=== PATIENT | male | born 1975 | race Caucasian/White ===

== ENCOUNTER 2016-11-22 10:56 | Emergency (ER) | payer BC ==
--- NOTE | 2016-11-22 11:41 | ED ---
General Adult HPI - General Chief complaint: ENT Stated complaint: headache Time Seen by Provider: 11/22/16 11:21 Source: patient, RN notes reviewed Mode of arrival: ambulatory Limitations: no limitations - History of Present Illness Initial comments: 41-year-old male presenting for headache. Patient states that he has had a sinus infection for the past week. He was treated by an urgent care this past Friday which prescribed a Z-Juancho which not seem to improve his symptoms. He denies any fevers or chill. However he states that he feels more pressure in his right frontal sinus. Does have some radiation of pain to the back of his head at times. He denies any sore throat or voice changes. He denies any significant medical history. - Related Data Home Medications Medication Instructions Recorded Confirmed Azithromycin [Zithromax Z-pack] See Taper PO DIRECTED 11/22/16 11/22/16 Ibuprofen [Motrin] 600 mg PO Q8HR PRN 11/22/16 11/22/16 Previous Rx's Medication Instructions Recorded Dexamethasone 6 mg PO DAILY #2 tablet 11/22/16 HYDROcodone/APAP 5-325MG [[place] 1 tab PO Q6HR PRN #8 tab 11/22/16 5-325] Ibuprofen [Motrin] 800 mg PO Q8HR PRN #21 tab 11/22/16 Allergies Allergy/AdvReac Type Severity Reaction Status Date / Time No Known Allergies Allergy Verified 11/22/16 12:28 Review of Systems ROS Statement: Those systems with pertinent positive or pertinent negative responses have been documented in the HPI. ROS Other: All systems not noted in ROS Statement are negative. Past Medical History Additional Past Medical History / Comment(s): migraines History of Any Multi-Drug Resistant Organisms: None Reported Past Surgical History: Orthopedic Surgery Past Psychological History: No Psychological Hx Reported Smoking Status: Current every day smoker Past Alcohol Use History: Occasional Past Drug Use History: None Reported General Exam - General Exam Comments Initial Comments: General: Awake and Alert. No acute distress. Does not appear acutely ill. Appears uncomfortable. Eyes: MONIQUE, EOM intact without pain. No proptosis. No nystagmus. No scleral icterus. HENT: Atraumatic, normocephalic. Mucous membranes moist. Trachea midline. There is some mucosal edema bilateral nares. He is tender over the right frontal sinus. No posterior pharyngeal swelling or erythema. No tonsillar swelling. No mastoid tenderness. No septal hematoma. Neck: The neck is supple, there is no tenderness or JVD. No nuchal rigidity. Cardiovascular: Regular rate and rhythm. No murmur, rub, or gallop is appreciated. Distal pulses intact. Respiratory: Lungs are clear to auscultation bilaterally. No wheezes, rales, rhonchi. No respiratory distress. Gastrointestinal: Soft, Nontender. No rebound or guarding. Non-distended. No masses or organomegaly noted. No CVA tenderness. Musculoskeletal: No tenderness. Normal ROM. No gross deformity. No strength deficits. Neurological: A&Ox3. CN II-XII grossly intact, There are no obvious motor or sensory deficits. Coordination appears grossly intact. Speech is normal. Skin: Skin is warm and dry and no rashes or lesions are noted. Psychiatric: Cooperative, appropriate mood & affect, normal judgment. Limitations: no limitations Course Vital Signs 11/22/16 11/22/16 11:13 13:15 Temperature 97.9 F 96.8 F L Pulse Rate 64 63 Respiratory 18 16 Rate Blood Pressure 143/79 123/73 O2 Sat by Pulse 99 97 Oximetry Medical Decision Making - Medical Decision Making 41-year-old male presenting for headache. Given his history and presenting symptoms this is likely sinus related headache. He was give a dose of Toradol and Decadron in the ED. On reevaluation he does state he is feeling improved after medications. Discussed inflammation as cause of sinus pressure and over- the-counter treatments such as saline nasal rinses versus [place]. Discussed trialing burst of steroids. Discussed NSAIDs for pain and inflammation. Discussed concerning signs symptoms for immediate return to the ED. Discussed close follow-up with PCP. Patient is agreeable with plan of discharge home. Disposition Clinical Impression: Headache, Sinus infection Disposition: HOME SELF-CARE Condition: Stable Instructions: Sinusitis (ED), Acute Headache (ED) Prescriptions: Dexamethasone 6 mg PO DAILY #2 tablet HYDROcodone/APAP 5-325MG [[place] 5-325] 1 tab PO Q6HR PRN #8 tab PRN Reason: Pain Ibuprofen [Motrin] 800 mg PO Q8HR PRN #21 tab PRN Reason: Pain Referrals: Marco Robles MD [Primary Care Provider] - 1-2 days Time of Disposition: 12:55
[2016-11-22] MEDS: KETOROLAC 60 MG/2 ML VIAL IM STA (11:50)
[2016-11-22] MEDS: DEXAMETHASONE SOD PHOSPHATE 10 MG/ML 1 ML VIAL IM STA (11:53)
[2016-11-22 13:16] VITALS: BP 123/73; PULSE 63; RESP 16; TEMP 96.8
== END 2016-11-22 13:17 | disposition home or self-care (01) ==
LOC: EC 10:56
DX: J32.9 Chronic sinusitis, unspecified (principal); F17.200 Nicotine dependence, unspecified, uncomplicated
CPT/HCPCS: 96372 ×2; 99283; J1100; J1885

== ENCOUNTER → 2016-12-21 | Outpatient (CLI) | payer BC ==
--- NOTE | 2016-12-21 09:16 | CT ---
EXAMINATION TYPE: CT sinus wo con DATE OF EXAM: 12/21/2016 9:04 AM COMPARISON: NONE HISTORY: 41-year-old male Sinusitis, headache. CT DLP: 622.3 mGycm Automated exposure control for dose reduction was used. TECHNIQUE: Noncontrast axial views of the paranasal sinuses were obtained. Coronal reconstructions pe rformed. FINDINGS: There is scattered trace mucosal thickening within the maxillary sinuses and anterior ethmoid air kg ls. The frontal and sphenoid sinuses are clear. There is no air-fluid level. Reactive roger- osteogenesis is not seen. There is no destruction of the osseous stafford of the paranasal sinuses. The osteomeatal complexes are patent. Nasal septum shows very slight leftward deviation. The imaged brain brain is normal in appearance. Questionable old left medial orbital wall fracture, a xial images 30 and 31. Globes are intact. Mastoid air cells and middle ear cavities are well pneumatized. Reformatted images confirm above findings. IMPRESSION: Scattered trace mucosal thickening within the maxillary sinuses and anterior ethmoid air cells. Othe rwise, no significant paranasal sinus disease. Slight leftward nasal septal deviation.
== END ==
LOC: RADCTMAIN 08:50
PROVIDERS: ATTEND Family Medicine
DX: J32.0 Chronic maxillary sinusitis (principal); J34.2 Deviated nasal septum
CPT/HCPCS: 70486

== ENCOUNTER 2018-12-29 23:37 | Emergency (ER) | payer BC ==
[2018-12-29 23:52] VITALS: TEMP 98.3
[2018-12-30] MEDS ORDERED: SODIUM CHLORIDE 0.9% 1,000 ML IV ONE (00:02)
[2018-12-30] MEDS ORDERED: diphenhydrAMINE 50 MG/ML 1 ML VIAL IVP STA (00:02)
[2018-12-30] MEDS ORDERED: METOCLOPRAMIDE 5 MG/ML 2 ML VIAL IVP STA (00:02)
[2018-12-30] MEDS ORDERED: KETOROLAC 30 MG/ML 1 ML VIAL IVP STA (00:02)
[2018-12-30] MEDS ORDERED: HYDROmorphone 0.5 MG/0.5 ML SYRINGE IVP STA (01:40)
--- NOTE | 2018-12-30 01:41 | ED ---
Headache HPI - General Chief Complaint: Headache Stated Complaint: Migraine Time Seen by Provider: 12/29/18 23:55 Mode of arrival: ambulatory Limitations: no limitations - History of Present Illness Initial Comments: 43-year-old male patient presents to the emergency department today for evaluation of right-sided headache. Patient states headache started around 8:30 this evening. States he has been sick with nasal congestion and sinus infection for the last couple of weeks. States he did say initially start taking amoxicillin and then was switched to Levaquin on . Patient states that he did have a similar type headache 2 years ago when he had a sinus infection. He denies any fevers or chills with this. Denies any blurred or double vision. Denies dizziness or weakness. States he did have one episode of vomiting today with the pain. Denies any numbness or tingling to his extremities. Denies any focal weakness. Patient denies any recent rash, shortness breath, chest pain, abdominal pain, nausea, vomiting, diarrhea, constipation, back pain, hematuria, dysuria, urinary urgency, urinary frequency, or any other complaints. - Related Data Home Medications Medication Instructions Recorded Confirmed Azithromycin [Zithromax Z-pack] See Taper PO DIRECTED 11/22/16 11/22/16 Ibuprofen [Motrin] 600 mg PO Q8HR PRN 11/22/16 11/22/16 Previous Rx's Medication Instructions Recorded Dexamethasone 6 mg PO DAILY #2 tablet 11/22/16 HYDROcodone/APAP 5-325MG [[place] 1 tab PO Q6HR PRN #8 tab 11/22/16 5-325] Ibuprofen [Motrin] 800 mg PO Q8HR PRN #21 tab 11/22/16 Allergies Allergy/AdvReac Type Severity Reaction Status Date / Time No Known Allergies Allergy Verified 12/29/18 23:52 Review of Systems ROS Statement: Those systems with pertinent positive or pertinent negative responses have been documented in the HPI. ROS Other: All systems not noted in ROS Statement are negative. Past Medical History Additional Past Medical History / Comment(s): migraines, History of Any Multi-Drug Resistant Organisms: None Reported Past Surgical History: Orthopedic Surgery Past Psychological History: No Psychological Hx Reported Smoking Status: Current every day smoker Past Alcohol Use History: Occasional Past Drug Use History: None Reported General Exam Limitations: no limitations General appearance: alert, in no apparent distress, other (Some well-developed, well-nourished adult male patient in no acute distress. Vital signs upon presentation are temperature 98.3F, pulse 64, respirations 17, blood pressure 128/80, pulse ox 97% on room air.) Eye exam: Present: normal appearance, PERRL, EOMI. Absent: scleral icterus, conjunctival injection, nystagmus, periorbital swelling ENT exam: Present: normal exam, normal oropharynx, mucous membranes moist, TM's normal bilaterally Neck exam: Present: normal inspection, full ROM. Absent: tenderness, meningismus, lymphadenopathy Respiratory exam: Present: normal lung sounds bilaterally. Absent: respiratory distress, wheezes, rales, rhonchi, stridor Cardiovascular Exam: Present: regular rate, normal rhythm, normal heart sounds. Absent: systolic murmur, diastolic murmur, rubs, gallop, clicks GI/Abdominal exam: Present: soft, normal bowel sounds. Absent: distended, tenderness, guarding, rebound, rigid Neurological exam: Present: alert, oriented X3, CN II-XII intact, other (Strength in all 4 extremities is 5/5) Psychiatric exam: Present: normal affect, normal mood Skin exam: Present: warm, dry, intact, normal color. Absent: rash Course Vital Signs 12/29/18 12/30/18 23:48 01:48 Temperature 98.3 F Pulse Rate 64 81 Respiratory 17 16 Rate Blood Pressure 128/80 114/59 O2 Sat by Pulse 97 Oximetry Medical Decision Making - Medical Decision Making 43-year-old male patient presented to the emergency department today for evaluation of right-sided headache with one episode of vomiting. Patient is currently being treated for sinus infection states he did have a similar type headache with a sinus infection 2 years ago. Physical examination is unremarkable. Patient is neurologically intact with no focal deficits. Patient is given IV fluids and medications to treat his headache here in the ER. Upon reevaluation patient's pain decreased from a 10 to a 4. We did discuss receiving one more dose of pain medication and being discharged. Patient does for comfort with this plan. He'll be discharged home to follow-up with his primary care physician for recheck as soon as possible. Return parameters were discussed in detail. He verbalizes understanding and agrees with this plan. Disposition Clinical Impression: Acute headache Disposition: HOME SELF-CARE Condition: Good Instructions (If sedation given, give patient instructions): Acute Headache (ED) Additional Instructions: Increase fluids. Continue home medications. Follow up with your primary care physician for recheck in 1-2 days. Return to the emergency department immediately for any new, worsening, or concerning symptoms. Is patient prescribed a controlled substance at d/c from ED?: No Referrals: Marco Robles MD [Primary Care Provider] - 1-2 days Time of Disposition: 01:41
[2018-12-30 01:49] VITALS: BP 114/59; PULSE 81; RESP 16
== END 2018-12-30 02:13 | disposition home or self-care (01) ==
LOC: EC 23:37
DX: G43.909 Migraine, unspecified, not intractable, without status migrainosus (principal); R09.81 Nasal congestion; F17.200 Nicotine dependence, unspecified, uncomplicated
CPT/HCPCS: 96361; 96374; 96375; 99283

== ENCOUNTER → 2019-01-08 | Outpatient (CLI) | payer BC ==
--- NOTE | 2019-01-08 13:39 | CT ---
EXAMINATION TYPE: CT brain wo con DATE OF EXAM: 01/08/2019 COMPARISON: 10/04/2014 HISTORY: Headache CT DLP: 1213 mGycm. Automated Exposure Control for Dose Reduction was Utilized. TECHNIQUE: CT scan of the head is performed without contrast. FINDINGS: There is no acute intracranial hemorrhage, mass effect, or midline shift identified. The ventricles and sulci are within normal limits in size. The globes are intact and the visualized sin uses are clear. IMPRESSION: No acute intracranial hemorrhage, mass effect, or midline shift is seen. If symptoms per sist would recommend MRI.
== END ==
LOC: RADCTMAIN 13:06
PROVIDERS: ATTEND Family Medicine
DX: R51 Headache (principal)
CPT/HCPCS: 70450

== ENCOUNTER 2019-01-09 20:33 | Emergency (ER) | payer BC ==
[2019-01-09] MEDS ORDERED: diphenhydrAMINE 50 MG/ML 1 ML VIAL IVP STA (21:10)
[2019-01-09] MEDS ORDERED: KETOROLAC 30 MG/ML 1 ML VIAL IVP STA (21:10)
[2019-01-09] MEDS ORDERED: SODIUM CHLORIDE 0.9% 1,000 ML IV STA (21:10)
[2019-01-09] MEDS ORDERED: METOCLOPRAMIDE 5 MG/ML 2 ML VIAL IVP STA (21:10)
--- NOTE | 2019-01-09 21:16 | ED ---
Headache HPI - General Chief Complaint: Headache Stated Complaint: Headache Time Seen by Provider: 01/09/19 20:56 Mode of arrival: ambulatory Limitations: no limitations - History of Present Illness Initial Comments: Patient is a 43-year-old male presenting for headache. The patient is bedside and states that for the last 2-3 years, he typically gets his cyclical headaches between November and December. This headache feels fairly typical and started around 6 PM. It feels a sharp sensation on the right side of his head behind his eye but he denies any vision changes or actual eye pain. He states that he has had this intermittent headache which last couple hours or last 2-3 days. He had a CT of his head performed as he was initially diagnosed with sinus infection. He states that when these headaches come on, he gets a runny nose and feels like needs to blow his nose. He denies any fevers or chills, neck pain, back pain but his had a little bit of nausea. He also states that this is not the worst headache of his life. - Related Data Home Medications Medication Instructions Recorded Confirmed Azithromycin [Zithromax Z-pack] See Taper PO DIRECTED 11/22/16 11/22/16 Ibuprofen [Motrin] 600 mg PO Q8HR PRN 11/22/16 11/22/16 Previous Rx's Medication Instructions Recorded Dexamethasone 6 mg PO DAILY #2 tablet 11/22/16 HYDROcodone/APAP 5-325MG [[place] 1 tab PO Q6HR PRN #8 tab 11/22/16 5-325] Ibuprofen [Motrin] 800 mg PO Q8HR PRN #21 tab 11/22/16 Allergies Allergy/AdvReac Type Severity Reaction Status Date / Time No Known Allergies Allergy Verified 01/09/19 20:46 Review of Systems ROS Statement: Those systems with pertinent positive or pertinent negative responses have been documented in the HPI. Constitutional: Negative for chills, fatigue and fever. HENT: Negative for congestion. Respiratory: Negative for chest tightness, shortness of breath and wheezing. Negative for cough Cardiovascular: Negative for chest pain and palpitations. Gastrointestinal: Negative for abdominal pain. Negative for abdominal distention, diarrhea, nausea and vomiting. Genitourinary: Negative for dysuria. Musculoskeletal: Negative for back pain, neck pain and neck stiffness. Skin: Negative for color change. Neurological: Negative for dizziness, speech difficulty, weakness and light- headedness. Positive for headaches Psychiatric/Behavioral: Negative for agitation and confusion. Negative for anxiety ROS Other: All systems not noted in ROS Statement are negative. Past Medical History Additional Past Medical History / Comment(s): migraines, History of Any Multi-Drug Resistant Organisms: None Reported Past Surgical History: Orthopedic Surgery Past Psychological History: No Psychological Hx Reported Smoking Status: Current every day smoker Past Alcohol Use History: Occasional Past Drug Use History: None Reported General Exam - General Exam Comments Initial Comments: Constitutional: Pt appears well-developed and well-nourished. No distress. Head: Normocephalic and atraumatic. Eyes: EOM are normal. Neck: Normal range of motion. Neck supple. Cardiovascular: Normal rate, regular rhythm, S1 normal, S2 normal and normal heart sounds. Exam reveals no gallop and no friction rub. No murmur heard. Pulmonary/Chest: Effort normal and breath sounds normal. No tachypnea and no bradypnea. No respiratory distress. No wheezes or rales noted. Abdominal: Soft. Bowel sounds are normal. Pt exhibits no shifting dullness, no distension, no pulsatile liver, no fluid wave, no abdominal bruit and no ascites. There is no rigidity, no rebound, no guarding, no tenderness at McBurney's point and negative Deng's sign. There is no tenderness. Musculoskeletal: Normal range of motion. Neurological: Pt is alert and oriented to person, place, and time. No cranial nerve deficit. Skin: Skin is warm and dry. No rash noted. Pt is not diaphoretic. No erythema. No pallor. Psychiatric: Pt has a normal mood and affect. Pt behavior is normal. Thought content normal. Limitations: no limitations Course Vital Signs 01/09/19 01/09/19 20:43 22:03 Temperature 97.5 F L 97 F L Pulse Rate 62 64 Respiratory 16 20 Rate Blood Pressure 133/82 130/79 O2 Sat by Pulse 98 99 Oximetry Medical Decision Making - Medical Decision Making Based on HPI and physical exam, there is a very low suspicion for emergent pathology such as subarachnoid hemorrhage. History of present illness is more consistent with cluster headache and patient was given oxygen as well as Toradol, Benadryl, Reglan and he stated that symptoms completely resolved. Additionally, recent CT head is performed and that was reviewed and showed no evidence of acute pathology. Because of this, it was thought that the patient could be safely discharged for close follow-up with PCP and neurology in next 1- 2 days. Patient was agreeable to plan. Disposition Clinical Impression: Headache Disposition: HOME SELF-CARE Condition: Good Instructions (If sedation given, give patient instructions): Acute Headache (ED) Is patient prescribed a controlled substance at d/c from ED?: No Referrals: Marco Robles MD [Primary Care Provider] - 1-2 days Time of Disposition: 22:53
[2019-01-09 22:04] VITALS: BP 130/79; PULSE 64; RESP 20; TEMP 97
== END 2019-01-09 23:00 | disposition home or self-care (01) ==
LOC: EC 20:33
DX: R51 Headache (principal); R11.0 Nausea; F17.200 Nicotine dependence, unspecified, uncomplicated
CPT/HCPCS: 99283; 96374; 96375 ×2; 96361; J1200; J2765; J1885

== ENCOUNTER 2019-10-27 10:21 | Emergency (ER) | payer BC ==
[2019-10-27 10:28] VITALS: RESP 18
[2019-10-27] MEDS ORDERED: SODIUM CHLORIDE 0.9% 1,000 ML IV STA ×2 (10:40→11:40)
[2019-10-27] MEDS ORDERED: ASPIRIN 81 MG PO STA (10:40)
--- NOTE | 2019-10-27 10:43 | ED ---
Chest Pain HPI - General Chief Complaint: Chest Pain Stated Complaint: chest pain Time Seen by Provider: 10/27/19 10:39 Source: patient, RN notes reviewed, old records reviewed Mode of arrival: wheelchair Limitations: no limitations - History of Present Illness Initial Comments: This is a 44-year-old male here for evaluation of chest pain. Patient has no history of high blood pressure or cholesterol diabetessignificant sick contacts occasional smoker. No recent travel history or sick contacts. Patient had one episode of chest pain his rib pain last night bilaterally 1 episode chest pain prior to arrival today episode with sudden onset with diaphoresis shortness of breath. Symptoms did resolve upon arrival to ER patient currently not complain ing of chest pain is having some rib pain not [place] takes a deep breath without worsening moves. No prior history of similar complaints MD Complaint: chest pain, other (BL rib pain) -: hour(s) Onset: during rest, during exertion Pain Location: left chest, right chest Pain Radiation: other (ribs) Severity: moderate Severity scale (1-10): 5 Quality: heaviness Consistency: constant, now resolved Improves With: nothing Worsens With: nothing Anginal Symptoms: diaphoresis, dyspnea Treatments Prior to Arrival: none - Related Data Home Medications Medication Instructions Recorded Confirmed Azithromycin [Zithromax Z-pack] See Taper PO DIRECTED 11/22/16 11/22/16 Ibuprofen [Motrin] 600 mg PO Q8HR PRN 11/22/16 11/22/16 Previous Rx's Medication Instructions Recorded Dexamethasone 6 mg PO DAILY #2 tablet 11/22/16 HYDROcodone/APAP 5-325MG [[place] 1 tab PO Q6HR PRN #8 tab 11/22/16 5-325] Ibuprofen [Motrin] 800 mg PO Q8HR PRN #21 tab 11/22/16 Allergies Allergy/AdvReac Type Severity Reaction Status Date / Time No Known Allergies Allergy Verified 10/27/19 10:28 Review of Systems ROS Statement: Those systems with pertinent positive or pertinent negative responses have been documented in the HPI. ROS Other: All systems not noted in ROS Statement are negative. EKG Findings - EKG Comments: EKG Findings:: EKG shows sinus a rate of 78, CA 126, QRS 114, QTc 428 Past Medical History Additional Past Medical History / Comment(s): migraines, History of Any Multi-Drug Resistant Organisms: None Reported Past Surgical History: Orthopedic Surgery Past Psychological History: No Psychological Hx Reported Smoking Status: Current every day smoker Past Alcohol Use History: Occasional Past Drug Use History: None Reported General Exam Limitations: no limitations General appearance: alert, in no apparent distress, anxious Head exam: Present: atraumatic, normocephalic, normal inspection Eye exam: Present: normal appearance, PERRL, EOMI. Absent: scleral icterus, conjunctival injection, periorbital swelling ENT exam: Present: normal exam, mucous membranes moist Neck exam: Present: normal inspection. Absent: tenderness, meningismus, lymphadenopathy Respiratory exam: Present: normal lung sounds bilaterally. Absent: respiratory distress, wheezes, rales, rhonchi, stridor Cardiovascular Exam: Present: regular rate, normal rhythm, normal heart sounds. Absent: systolic murmur, diastolic murmur, rubs, gallop, clicks GI/Abdominal exam: Present: soft, normal bowel sounds. Absent: distended, tenderness, guarding, rebound, rigid Extremities exam: Present: normal inspection, full ROM, normal capillary refill. Absent: tenderness, pedal edema, joint swelling, calf tenderness Back exam: Present: normal inspection Neurological exam: Present: alert, oriented X3, CN II-XII intact Psychiatric exam: Present: normal affect, normal mood Skin exam: Present: warm, dry, intact, normal color. Absent: rash Course Vital Signs 10/27/19 10/27/19 10/27/19 10:26 10:53 12:31 Temperature 98.0 F Pulse Rate 82 78 72 Respiratory 18 18 18 Rate Blood Pressure 134/88 121/81 121/87 O2 Sat by Pulse 99 98 98 Oximetry 10/27/19 13:46 Temperature Pulse Rate 73 Respiratory 18 Rate Blood Pressure 122/80 O2 Sat by Pulse 98 Oximetry Disposition Clinical Impression: Atypical chest pain, Chest pain Disposition: HOME SELF-CARE Condition: Good Instructions (If sedation given, give patient instructions): Chest Pain (ED) Is patient prescribed a controlled substance at d/c from ED?: No Referrals: Marco Robles MD [Primary Care Provider] - 1-2 days
--- NOTE | 2019-10-27 11:09 | XR ---
EXAMINATION TYPE: XR chest 2V DATE OF EXAM: 10/27/2019 COMPARISON: None INDICATION: Chest pain TECHNIQUE: Frontal and lateral views of the chest are obtained. FINDINGS: The heart size is normal. The pulmonary vasculature is normal. The lungs are clear. IMPRESSION: 1. No acute pulmonary process.
[2019-10-27 11:17] LABS: Basophils % (A) 0 %; Eosinophils # (A) 0.1 k/uL (0-0.7); Eosinophils % (A) 2 %; HCT 51.3 % (39.0-53.0); HGB 17.4 gm/dL (13.0-17.5); Lymphocytes # (A) 1.5 k/uL (1.0-4.8); Lymphocytes % (A) 19 %; MCH 31.2 pg (25.0-35.0); MCHC 33.8 g/dL (31.0-37.0); MCV 92.3 fL (80.0-100.0); Mean Platelet Volume 9.8; Monocytes # (A) 0.6 k/uL (0-1.0); Monocytes % (A) 8 %; Neutrophils # (A) 5.3 k/uL (1.3-7.7); Neutrophils % (A) 69 %; Platelet Count 164 k/uL (150-450); RBC 5.56 m/uL (4.30-5.90); RDW 12.5 % (11.5-15.5); WBC 7.7 k/uL (3.8-10.6)
[2019-10-27 11:27] LABS: ALT 37 U/L (4-49); AST 39 U/L (17-59); African American GFR (CKD) >90 (>60 ml/min/1.73 sqM); Albumin 4.9 g/dL (3.5-5.0); Alkaline Phosphatase 95 U/L (38-126); Anion Gap 12 mmol/L; Blood Urea Nitrogen 13 mg/dL (9-20); Calcium 9.9 mg/dL (8.4-10.2); Carbon Dioxide 23 mmol/L (22-30); Chloride 105 mmol/L (98-107); Glucose 112 mg/dL (74-99); Magnesium 2.2 mg/dL (1.6-2.3); Non-African American GFR(CKD) >90 (>60 ml/min/1.73 sqM); Potassium 4.4 mmol/L (3.5-5.1); Sodium 140 mmol/L (137-145); Total Bilirubin 0.8 mg/dL (0.2-1.3)
[2019-10-27 11:31] LABS: INR 0.9 (<1.2); Partial Thromboplastin Time 24.5 sec (22.0-30.0); Prothrombin Time 10.2 sec (9.0-12.0)
--- NOTE | 2019-10-27 12:15 | CT ---
EXAMINATION TYPE: CT angio chest DATE OF EXAM: 10/27/2019 COMPARISON: NONE HISTORY: Epigastric pain and Abdominal discomfort with shortness of breath. CT DLP: 399.4 mGycm. Automated Exposure Control for Dose Reduction was Utilized. CONTRAST: CTA scan of the thorax is performed with IV Contrast, patient injected with 100 mL of Isovue 370, pul monary embolism protocol. MIP Images are created on CT scanner and reviewed. FINDINGS: LUNGS: Subpleural pulmonary nodules are seen in the right middle lobe measuring 5 mm each on image 95 . 3 mm subpleural pulmonary nodule image 89. 5 mm pulmonary nodule at the left lung base is seen on i mage 114. Left lateral 4 mm solid pulmonary nodule on image 101. 3 mm solid pulmonary nodule in the l eft upper lobe laterally on image 67. Minimal left basilar subsegmental atelectasis. No focal consoli dation. There is no pleural effusion or pneumothorax seen. The tracheobronchial tree is patent. MEDIASTINUM: There is suboptimal enhancement of the pulmonary artery and its branches, there is no ce ntral evidence for pulmonary embolism. Evaluation of the segmental and subsegmental branches is nondi agnostic given there is much more contrast located in the thoracic aorta and the main pulmonary arter y. No thoracic aortic dissection. Strand-like density in the superior anterior mediastinum most commo nly relates to residual thymic tissue. No significant coronary calcifications are seen however this i s limited given a bolus timing. There are no greater than 1 cm hilar or mediastinal lymph nodes. N o cardiomegaly or pericardial effusion is seen. IMPRESSION: 1. No central pulmonary embolism. Exam is nondiagnostic for segmental or subsegmental pulmonary embol i given the greater contrast in the aorta rather than the main pulmonary artery. No evidence of thora cic aortic dissection. 2. Bilateral pulmonary nodules measuring up to 5 mm. These are below the threshold of PET CT or percu taneous biopsy. Recommendation is for repeat CT in 6-12 months.
--- NOTE | 2019-10-27 12:19 | CT ---
EXAMINATION TYPE: CT abdomen pelvis w con DATE OF EXAM: 10/27/2019 COMPARISON: HISTORY: Epigastric pain and Abdominal discomfort with shortness of breath. CT DLP: 866.3 mGycm Automated exposure control for dose reduction was used. TECHNIQUE: Helical acquisition of images was performed from the lung bases through the pelvis. CONTRAST: Performed without Oral Contrast and with IV Contrast, patient injected with 100 mL of Isovue 370. FINDINGS: LUNG BASES: Discussed in the CT thorax dictation of the same date LIVER/GB: Hepatic parenchyma is diffusely hypoattenuated in comparison to that of the spleen, most co mmonly seen in hepatic steatosis. This finding limits evaluation for hepatic masses. No gross evidenc e of hepatic mass is seen. No intrahepatic biliary ductal dilatation. No cholelithiasis. PANCREAS: No significant abnormality is seen. SPLEEN: Enlarged measuring 14.0 cm in longitudinal dimension. Small splenule is noted on coronal imag e 54. ADRENALS: No significant abnormality is seen. KIDNEYS: Kidneys enhance and excrete symmetrically without hydronephrosis. FREE AIR: No free air is visualized. ADENOPATHY: No greater than 1 cm short axis lymph node in the abdomen or pelvis. OSSEOUS STRUCTURES: Mild degenerative change BOWEL: There are prominent vasa recta near the sigmoid colon. Although the colon is incompletely dis tended there is the appearance of bowel wall thickening throughout the sigmoid colon, descending colo n, splenic flexure, and a lesser degree within the transverse colon and hepatic flexure. Very subtle pericolonic fat stranding is seen without pericolonic abscess. IMPRESSION: 1. ACUTE UNCOMPLICATED PANCOLITIS GREATEST IN THE DESCENDING AND SIGMOID COLON WITHOUT PNEUMOPERITONE UM NOR PERICOLONIC ABSCESS. 2. HEPATIC STEATOSIS AND SPLENOMEGALY ARE INCIDENTALLY IDENTIFIED.
[2019-10-27 15:04] VITALS: BP 123/72; PULSE 77; TEMP 98.4
== END 2019-10-27 15:00 | disposition home or self-care (01) ==
LOC: EC 10:21
DX: R07.89 Other chest pain (principal); R61 Generalized hyperhidrosis; R06.00 Dyspnea, unspecified; F17.200 Nicotine dependence, unspecified, uncomplicated
CPT/HCPCS: 36415; 93005; 83880; 80053; 83690; 83735; 84484; 85025; 85610; 85730; 71046; 71275; 74177; 99285; 96360; 96361; Q9967